=== PATIENT | male | born 1985 | race Caucasian/White ===

== ENCOUNTER 2017-09-22 10:07 | Emergency (ER) | payer MEDICAID ==
[2017-09-22] MEDS ORDERED: Oxymetazoline 0.05% Nasal Spray 15 ML Bottle NAS ONE (10:08)
[2017-09-22 10:23] VITALS: BP 125/89
--- NOTE | 2017-09-22 10:38 | EDM.PDOC ---
ED HPI GENERAL MEDICAL PROBLEM - General Stated Complaint: NOSE BLEED Time Seen by Provider: 09/22/17 10:25 Source of Information: Reports: Patient History Limitations: Reports: No Limitations - History of Present Illness INITIAL COMMENTS - FREE TEXT/NARRATIVE: This 32 yo male patient reports to the ED due to a nosebleed. The patient reports he has had head congestion over the past 2-3 days for which he took an allergy pill. This morning (30 minutes prior to his arrival), the patient noticed his nose bleeding. The patient initially went to the clinic was sent to the ED. The patient has no history of similar symptoms. The patient does report that he has been coughing up green sputum over the past 2 days. The patient reports that he has not taken anything today. Onset: Today Duration: Minutes: (30), Constant Location: Reports: Face (nosebleed (right nare)) Quality: Reports: Dull Severity: Moderate Improves with: Reports: None Worsens with: Reports: None Associated Symptoms: Reports: No Other Symptoms - Related Data Allergies Allergy/AdvReac Type Severity Reaction Status Date / Time amoxicillin [Amoxicillin] Allergy Stomach Verified 09/22/17 10:19 Upset levofloxacin [From Levaquin] Allergy Shortness Verified 09/22/17 10:19 of Breath Home Meds: Home Meds . [No Known Home Meds] 10/22/15 [History] Past Medical History - Past Health History Medical/Surgical History: Denies Medical/Surgical History HEENT History: Reports: None Respiratory History: Reports: Bronchitis, Recurrent Gastrointestinal History: Reports: Gastritis, GERD, PUD Genitourinary History: Reports: None Musculoskeletal History: Reports: Fracture Other Musculoskeletal History: wrists joshua fracture. Rt. hip problems from a old foot ball injury. Neurological History: Reports: None Psychiatric History: Reports: None Endocrine/Metabolic History: Reports: None Hematologic History: Reports: None Immunologic History: Reports: None Oncologic (Cancer) History: Reports: None Dermatologic History: Reports: None - Infectious Disease History Infectious Disease History: Reports: Chicken Pox - Past Surgical History Musculoskeletal Surgical History: Reports: Other (See Below) Social & Family History - Family History Family Medical History: Noncontributory - Tobacco Use Smoking Status *Q: Current Every Day Smoker Years of Tobacco use: 15 Packs/Tins Daily: 2 Second Hand Smoke Exposure: Yes - Alcohol Use Days Per Week of Alcohol Use: 0 - Recreational Drug Use Recreational Drug Use: Yes Recreational Drug Type: Reports: Marijuana/Hashish Recreational Drug Use Frequency: Weekly ED ROS ENT - Review of Systems Review Of Systems: ROS reveals no pertinent complaints other than HPI. ED EXAM, ENT - Physical Exam Exam: See Below Exam Limited By: No Limitations General Appearance: Alert, WD/WN, Moderate Distress Eye Exam: Bilateral Eye: EOMI, Normal Inspection, PERRL Ears: Normal External Exam, Normal Canal, Hearing Grossly Normal, Normal TMs Nose: Active Bleeding (upon arrival), Other (bleeding well controlled after a spray of Afrin while in the ED.) Mouth/Throat: Normal Inspection, Normal Gums, Normal Lips, Normal Oropharynx, Normal Teeth Head: Atraumatic, Normocephalic Neck: Normal Inspection, Supple, Non-Tender, Full Range of Motion Respiratory/Chest: No Respiratory Distress, Lungs Clear, Normal Breath Sounds, No Accessory Muscle Use, Chest Non-Tender Cardiovascular: Normal Peripheral Pulses, Regular Rate, Rhythm, No Edema, No Gallop, No JVD, No Murmur, No Rub GI/Abdominal: Normal Bowel Sounds, Soft, Non-Tender, No Organomegaly, No Distention, No Abnormal Bruit, No Mass (Male) Exam: Deferred Rectal (Males) Exam: Deferred Back: Normal Inspection, Full Range of Motion Extremities: Normal Inspection, Normal Range of Motion, Non-Tender, No Pedal Edema, Normal Capillary Refill Psychiatric: Normal Affect, Normal Mood Skin: Warm, Dry, Intact, Normal Color, No Rash Lymphatic: No Adenopathy Course - Vital Signs Last Recorded V/S: Last Vital Signs Temp 36.2 C 09/22/17 10:15 Pulse 99 09/22/17 10:15 Resp 16 09/22/17 10:15 BP 125/89 09/22/17 10:15 Pulse Ox 99 09/22/17 10:15 - Orders/Labs/Meds Meds: Medications Discontinued Medications Generic Name Dose Route Start Last Admin Trade Name Freq PRN Reason Stop Dose Admin Oxymetazoline HCl 1 ml 09/22/17 10:08 09/22/17 10:39 Afrin Original 0.05% Nasal [place] JABIER 09/22/17 10:09 2 sprays ONETIME ONE Administration Departure - Departure Time of Disposition: 10:52 Disposition: Home, Self-Care 01 Condition: Fair Clinical Impression: Epistaxis URI (upper respiratory infection) Qualifiers: URI type: unspecified URI Qualified Code(s): J06.9 - Acute upper respiratory infection, unspecified - Discharge Information Instructions: Upper Respiratory Infection, Adult, [id number], Nosebleed, Adult, [id number] Forms: ED Department Discharge Care Plan Goals: The patient was advised of the examination results during the visit. The patient 's nose was sprayed with Afrin which resulted in symptom relief. The patient was discharged with a script for Omnicef (300 mg) to take 1 by mouth 2 times per day for 10 days. The patient was advised to fill the prescription if his symptoms continue or get worse over the next several days. If the patient has any additional symptoms or concerns, the patient should either return to the emergency department or follow-up with his primary care facility.
== END 2017-09-22 11:02 | disposition home or self-care (01) ==
LOC: DL.ED 10:07
DX: R04.0 Epistaxis (principal); J06.9 Acute upper respiratory infection, unspecified; F17.210 Nicotine dependence, cigarettes, uncomplicated; Z88.1 Allergy status to other antibiotic agents
CPT/HCPCS: 99283; A9270

== ENCOUNTER 2021-03-26 19:32 | Emergency (ER) | payer MEDICAID ==
--- NOTE | 2021-03-26 19:43 | EDM.PDOC ---
ED HPI GENERAL MEDICAL PROBLEM - General Chief Complaint: Upper Extremity Injury/Pain Stated Complaint: FINGER PAIN FOR TWO DAYS, SOMETHING IN IT Time Seen by Provider: 03/26/21 19:43 Source of Information: Reports: Patient, RN, RN Notes Reviewed History Limitations: Reports: No Limitations - History of Present Illness INITIAL COMMENTS - FREE TEXT/NARRATIVE: Pt is a 35 year old male who presents to the ER with c/o painful swelling and redness to the right 4th finger. Patient states it has progressively been getting larger and more painful. He states that he uses his hands a lot for work, so unsure if he got something in the finger. He states he poked it with a needle and got some thick yellow drainage out of it. Patient states he is up to date on his tetanus vaccination. Onset: Gradual Right Finger-Ring Pain Score (Numeric/FACES): 10 - Related Data Allergies Allergy/AdvReac Type Severity Reaction Status Date / Time amoxicillin [Amoxicillin] Allergy Stomach Verified 03/26/21 19:51 Upset levofloxacin [From Levaquin] Allergy Shortness Verified 03/26/21 19:51 of Breath Home Meds: Home Meds . [No Known Home Meds] 10/22/15 [History] Past Medical History - Past Health History Medical/Surgical History: Denies Medical/Surgical History HEENT History: Reports: None Respiratory History: Reports: Bronchitis, Recurrent Gastrointestinal History: Reports: Gastritis, GERD, PUD Genitourinary History: Reports: None Musculoskeletal History: Reports: Fracture Other Musculoskeletal History: wrists joshua fracture. Rt. hip problems from a old foot ball injury. Neurological History: Reports: None Psychiatric History: Reports: None Endocrine/Metabolic History: Reports: None Hematologic History: Reports: None Immunologic History: Reports: None Oncologic (Cancer) History: Reports: None Dermatologic History: Reports: None - Infectious Disease History Infectious Disease History: Reports: Chicken Pox - Past Surgical History Musculoskeletal Surgical History: Reports: Other (See Below) Social & Family History - Family History Family Medical History: No Pertinent Family History Review of Systems - Review of Systems Review Of Systems: Comprehensive ROS is negative, except as noted in HPI. ED EXAM, GENERAL - Physical Exam Exam: See Below Exam Limited By: No Limitations General Appearance: Alert, WD/WN, No Apparent Distress Eye Exam: Bilateral Eye: EOMI, Normal Inspection Ears: Normal External Exam, Hearing Grossly Normal Nose: Normal Inspection Throat/Mouth: Normal Inspection, Normal Voice, No Airway Compromise Head: Atraumatic, Normocephalic Neck: Normal Inspection, Supple, Non-Tender, Full Range of Motion Respiratory/Chest: No Respiratory Distress, Lungs Clear, Normal Breath Sounds, No Accessory Muscle Use, Chest Non-Tender Cardiovascular: Normal Peripheral Pulses, Regular Rate, Rhythm, No Edema, No Gallop, No JVD, No Murmur, No Rub Peripheral Pulses: 2+: Radial (L), Radial (R) GI/Abdominal: Normal Bowel Sounds, Soft, Non-Tender (Male) Exam: Deferred Rectal (Males) Exam: Deferred Back Exam: Normal Inspection, Full Range of Motion, NT Extremities: Normal Inspection, No Pedal Edema, Normal Capillary Refill, Joint Swelling (right ring finger), Limited Range of Motion (right ring finger), Increased Warmth (right ring finger), Redness (right ring finger) Neurological: Alert, Oriented, Normal Cognition, Normal Gait, No Motor/Sensory Deficits Psychiatric: Anxious, Tearful Skin Exam: Warm, Other (right ring finger(entire) very large, erythematous with blanching, single hole on the ventral portion of the medial pad.) Lymphatic: No Adenopathy ED TRAUMA EXTREMITY PROCEDURES - I&D Site: right ventral ring finger Skin Prep: Isopropyl Alcohol (Alcohol) Local Anesthesia: Lidocaine: 1% Plain, Other (digital block) Local Anesthetic Volume: 5cc Drainage: Purulent, Bloody, Moderate Amount Probed to Break Up Loculations: Yes Packed With: None Sterile Dressing: Other (telfa with ) Complications: No Course - Vital Signs Last Recorded V/S: Last Vital Signs Temp 98.5 F 03/26/21 19:46 Pulse 110 H 03/26/21 19:46 Resp 20 03/26/21 19:46 BP 140/79 03/26/21 19:46 Pulse Ox 98 03/26/21 19:46 - Orders/Labs/Meds Orders: Active Orders 24 hr Category Date Time Status CULTURE WOUND [RM] Urgent Lab 03/26/21 20:00 Received Meds: Medications Discontinued Medications Generic Name Dose Route Start Last Admin Trade Name Freq PRN Reason Stop Dose Admin Hydrocodone Bitart/Acetaminophen 1 tab 03/26/21 21:15 Acetaminophen/Hydrocodone 325-10 Mg Tab PO 03/26/21 21:16 ONETIME ONE Ceftriaxone Sodium 1 gm 03/26/21 21:14 03/26/21 21:27 Ceftriaxone 1 Gm Vial IM 03/26/21 21:15 1 gm ONETIME ONE Administration Cephalexin 500 mg 03/26/21 19:48 03/26/21 19:54 Cephalexin 500 Mg Cap PO 03/26/21 19:49 500 mg ONETIME ONE Administration Ibuprofen 800 mg 03/26/21 21:21 03/26/21 21:28 Ibuprofen 800 Mg Tab PO 03/26/21 21:22 800 mg ONETIME ONE Administration Lidocaine HCl 30 ml 03/26/21 19:48 03/26/21 19:55 Lidocaine 1% 30 Ml Sdv INJECT 03/26/21 19:49 30 ml ONETIME ONE Administration Lidocaine HCl Confirm 03/26/21 21:21 03/26/21 21:34 Lidocaine 1% 30 Ml Sdv Administered 03/26/21 21:22 Not Given Dose 30 ml .ROUTE .STK-MED ONE Lidocaine HCl 2.1 ml 03/26/21 21:32 03/26/21 21:34 Lidocaine 1% 30 Ml Sdv INJECT 03/26/21 21:33 2.1 ml ONETIME ONE Administration Departure - Departure Time of Disposition: 21:19 Disposition: Home, Self-Care 01 Condition: Good Clinical Impression: Abscess Cellulitis Qualifiers: Site of cellulitis: extremity Site of cellulitis of extremity: finger Laterality: right Qualified Code(s): L03.011 - Cellulitis of right finger - Discharge Information *PRESCRIPTION DRUG MONITORING PROGRAM REVIEWED*: No *COPY OF PRESCRIPTION DRUG MONITORING REPORT IN PATIENT VIKA: No Instructions: Skin Abscess, Cellulitis, Adult, [id number] Referrals: PCP,None [Primary Care Provider] - Forms: ED Department Discharge Additional Instructions: May use Tylenol and/or Ibuprofen as directed for pain RX: Cephalexin 500mg orally twice daily for 10 days Follow up with your primary care facility this week if no improvement Return to the ER with any worsening of symptoms Keep area clean and dry, cover with dry bandage until healed Sepsis Event Note (ED) - Focused Exam Vital Signs: Vital Signs Temp Pulse Resp BP Pulse Ox 03/26/21 19:46 98.5 F 110 H 20 140/79 98 - My Orders Last 24 Hours: My Active Orders 03/26/21 20:00 CULTURE WOUND [RM] Urgent - Assessment/Plan Last 24 Hours: My Active Orders 03/26/21 20:00 CULTURE WOUND [RM] Urgent
[2021-03-26 19:47] VITALS: BP 140/79; PULSE 110
[2021-03-26] MEDS ORDERED: Cephalexin 500 MG Cap PO ONE (19:48)
[2021-03-26] MEDS ORDERED: Lidocaine 1% 30 ML SDV INJECT ONE ×2 (19:48→21:32)
[2021-03-26] MEDS ORDERED: cefTRIAXone 1 GM Vial IM ONE (21:14)
[2021-03-26] MEDS ORDERED: Acetaminophen/HYDROcodone 325-10 MG Tab PO ONE (21:15)
[2021-03-26] MEDS ORDERED: Lidocaine 1% 30 ML SDV ONE (21:21)
[2021-03-26] MEDS ORDERED: Ibuprofen 800 MG Tab PO ONE (21:21)
== END 2021-03-26 21:41 | disposition home or self-care (01) ==
LOC: DL.ED 19:32
DX: L03.011 Cellulitis of right finger (principal); L02.511 Cutaneous abscess of right hand; Z88.0 Allergy status to penicillin; Z88.8 Allergy status to other drugs, medicaments and biological substances
CPT/HCPCS: 10060; 87070; 87077; 87186; 96372; 99283-25; A9270-GY; J0696

== ENCOUNTER 2021-09-18 03:23 | Emergency (ER) | payer MEDICAID ==
[2021-09-18 05:04] LABS: ANION GAP 15.7 mEq/L (7-13); CHLORIDE,CL 105 mmol/L (98-107); SODIUM,NA 142 mmol/L (136-145)
[2021-09-18] MEDS ORDERED: Iopamidol 612 MG/ML 100 ML Bottle IVPUSH ONE (05:26)
[2021-09-18] MEDS ORDERED: Sodium Chloride 0.9% 1,000 ML IV ONE (05:43)
[2021-09-18 05:47] LABS: AMPHETAMINES,URINE POSITIVE (NEGATIVE); BARBITURATES,URINE NEGATIVE (NEGATIVE); BENZODIAZEPINE,URINE NEGATIVE (NEGATIVE); MDMA (ECSTASY), URINE POSITIVE (NEGATIVE); METHADONE,URINE NEGATIVE (NEGATIVE); METHAMPHETAMINES,URINE POSITIVE (NEGATIVE); OPIATES,URINE NEGATIVE (NEGATIVE); OXYCODONE,URINE NEGATIVE (NEGATIVE); PHENCYCLIDINE,URINE NEGATIVE (NEGATIVE); TCA,URINE NEGATIVE (NEGATIVE)
[2021-09-18 06:20] VITALS: BP 119/70; PULSE 85
[2021-09-18] MEDS ORDERED: cefTRIAXone 1 GM in Sodium Chloride 0.9% 50 ML IV ONE (06:21)
[2021-09-18] MEDS ORDERED: metroNIDAZOLE/Normal Saline 500 MG in Premix Bag 100 BAG IV ONE (07:24)
[2021-09-18] MEDS ORDERED: Ondansetron 4 MG/2 ML SDV IV ONE (07:26)
[2021-09-18] MEDS ORDERED: HYDROmorphone 1 MG/ML Syringe IVPUSH ONE (07:26)
== END 2021-09-18 08:17 | disposition home or self-care (01) ==
LOC: DL.ED 03:23
DX: K35.30 Acute appendicitis with localized peritonitis, without perforation or gangrene (principal); F15.10 Other stimulant abuse, uncomplicated; F16.10 Hallucinogen abuse, uncomplicated; K21.9 Gastro-esophageal reflux disease without esophagitis; Z72.0 Tobacco use; Z88.8 Allergy status to other drugs, medicaments and biological substances; Z79.899 Other long term (current) drug therapy
CPT/HCPCS: 36415; 74177; 80053; 80305-QW; 80307; 81003; 82150; 83605; 83690; 85025; 96365; 96367; 96375; 99284; 99285-25; J0696; J1170; J2405; J3490; J7030; Q9967; U0002

== ENCOUNTER 2022-03-26 14:25 | Emergency (ER) | payer MEDICAID ==
[2022-04-18 11:52] LABS: SODIUM,NA 138 mmol/L (136-145)
[2022-04-18 11:53] LABS: ANION GAP 13.3 mEq/L (7-13); CHLORIDE,CL 105 mmol/L (98-107); ESTIMATED GFR 115 mL/min (>=60)
[2022-04-18 11:56] LABS: CORONAVIRUS COVID-19 NAA NEGATIVE (NEGATIVE)
== END 2022-03-26 19:18 | disposition home or self-care (01) ==
LOC: DL.ED 14:25
DX: J40 Bronchitis, not specified as acute or chronic (principal); Z20.822 Contact with and (suspected) exposure to COVID-19
CPT/HCPCS: 0240U; 36415; 71045; 80053; 80179; 80307; 82140; 82150; 83605; 83690; 84484; 85025; 85379; 93005; 99282; 99284